=== PATIENT | female | born 1990 | race Caucasian/White ===

== ENCOUNTER 2019-06-28 15:59 | Emergency (ER) | payer MEDICAID ==
[~2019-06-28] VITALS: Ht 165.1 cm; Wt 60.0 kg
[2019-06-28 16:33] LABS: URINE HCG NEGATIVE (NEG)
[2019-06-28 16:39] LABS: CLARITY,URINE CLEAR (Clear); COLOR,URINE YELLOW (Yellow); GLUCOSE, URINE NEGATIVE (Neg); KETONES,URINE NEGATIVE (Neg); LEUKOCYTE ESTERASE ,URINE NEGATIVE (Neg); NITRITES, URINE NEGATIVE (Neg); OCCULT BLOOD,URINE NEGATIVE (Neg); PROTEIN,URINE NEGATIVE (Neg); UA COLLECTION TYPE CLN CATCH MIDSTREAM; UROBILINOGEN,URINE 0.2 E.U/dL (0.2-1.0)
[2019-06-28 16:45] LABS: BASOPHILS % (AUTO) 0.6 % (0-1); EOSINOPHILS # (AUTO) 0.1 X10'3 (0-0.9); EOSINOPHILS % (AUTO) 1.8 % (0-6); HEMATOCRIT 42.1 % (35.0-45.0); LYMPHOCYTES # (AUTO) 2.8 X10'3 (1.1-4.8); LYMPHOCYTES % (AUTO) 40.4 % (21-51); MEAN CORPUSCULAR HEMOGLOBIN 30.3 PG (27.0-31.0); MEAN CORPUSCULAR HGB CONC 33.2 g/dL (33.0-36.5); MEAN CORPUSCULAR VOLUME 91.4 FL (78-98); MEAN PLATELET VOLUME 10.3 FL (7.4-10.4); MONOCYTES # (AUTO) 0.5 X10'3 (0-0.9); MONOCYTES % (AUTO) 6.6 % (2-12); NEUTROPHILS # (AUTO) 3.5 X10'3 (1.8-7.7); NEUTROPHILS % (AUTO) 50.6 % (42-75); PLATELET COUNT 221 X10'3 (140-440); RED CELL DISTRIBUTION WIDTH 12.6 % (11.5-14.5); WHITE BLOOD COUNT 6.8 X10'3 (4.5-11.0)
[2019-06-28 16:58] LABS: ALANINE AMINOTRANSFERASE 19 U/L (12-78); ALBUMIN 4.4 G/DL (3.4-5.0); ALBUMIN/GLOBULIN RATIO 1.2 (1.1-1.5); ALKALINE PHOSPHATASE 64 IU/L (46-116); ANION GAP 9 (8-16); ASPARTATE AMINO TRANSFERASE 15 U/L (10-37); BILIRUBIN,TOTAL 0.2 MG/DL (0.1-1.0); BLOOD UREA NITROGEN 10 MG/DL (7-18); BUN/CREATININE RATIO 12.7 (6.6-38.0); CALCIUM 9.1 MG/DL (8.5-10.1); CHLORIDE 105 MMOL/L (99-107); CREATININE 0.79 MG/DL (0.40-0.90); GLUCOSE 95 MG/DL (70-104); SODIUM 141 MMOL/L (135-145); TOTAL CARBON DIOXIDE 27.1 MMOL/L (24-32); TOTAL PROTEIN 8.2 G/DL (6.4-8.2); eGFR 87 ML/MIN
[2019-06-28] MEDS ORDERED: ibuprofen tablet 400 MG TABLET PO ONE (18:00)
[2019-06-28 18:30] VITALS: BP 121/73
== END 2019-06-28 18:36 | disposition home or self-care (01) ==
LOC: ER 16:00
DX: N93.8 Other specified abnormal uterine and vaginal bleeding (principal); R10.31 Right lower quadrant pain
CPT/HCPCS: 36415; 80053; 81003; 81025; 85025; 87210; 99283

== ENCOUNTER 2019-06-29 18:15 | Emergency (ER) | payer MEDICAID ==
[~2019-06-29] VITALS: Ht 165.1 cm; Wt 52.6 kg
[2019-06-29] MEDS ORDERED: ibuprofen tablet 400 MG TABLET PO ONE (18:45)
[2019-06-29] MEDS ORDERED: ondansetron 4mg rapidly disintigrating tab PO ONE (18:45)
[2019-06-29 21:02] VITALS: BP 114/64
== END 2019-06-29 21:37 | disposition home or self-care (01) ==
LOC: ER 18:15
DX: N83.201 Unspecified ovarian cyst, right side (principal); R10.31 Right lower quadrant pain; N93.8 Other specified abnormal uterine and vaginal bleeding
CPT/HCPCS: 76830; 99284

== ENCOUNTER 2020-08-29 13:17 | Emergency (ER) | payer MEDICAID ==
[~2020-08-29] VITALS: Ht 165.1 cm; Wt 62.5 kg
--- NOTE | 2020-08-29 15:07 | NUR ---
PATIENT WENT TO URGENT CARE THE DAY AFTER LIFTING YARD WASTE UP TO A PLATFORM 3 WEEKS, AND THEY PRESCRIBED IBUPROFEN WHICH SHE TOOK REGULARLY UNTIL 2 DAYS AGO. AT TIME OF LIFTING, PATIENT HAD TO LAY ON THE GROUND AFTER SHE FELT HER BACK SEIZE UP. PATIENT WENT TO CRYOTHERAPY WELL FOR 1 WEEK OF INTENSIVE SEESIONS. EPSOLM SALT BATHS WELL. PATIENT IS CONERNED ABOUT HER BACK NOT BACK TO NORMAL AND WANTS TO RETURN TO WORK. PATIENT WOULD LIKE X RAYS OF HER BACK. PATIENT HAS APPT WITH PMD AT [facility] ON August.
--- NOTE | 2020-08-29 15:13 | NUR ---
PATIENT DENIES NUMBNESS TINGLING IN FINGERS ARMS OR ANYWHERE. SPINE APPEARS MIDLINE FOCAL TENDERNESS WITH PALPATION OF MID THORACIC SPINE AND RIGHT MID THORACIC PAIN WHERE RIB CAGE TO SPINE TENDER AND PAINFUL WITH BICEP PULLAGAINST MY ARMS. PAIN INCREASES WITH DEEP BREATHE
--- NOTE | 2020-08-29 15:22 | NUR ---
DR BLACKBURN IN ROOM OF NOTE, PATIENT "REINJURED HER BACK YESTERDAY VACUUMING" TO XRAY
[2020-08-29] MEDS ORDERED: ibuprofen tablet 400 MG TABLET PO ONE (15:25)
--- NOTE | 2020-08-29 16:06 | NUR ---
DR BLACKBURN AWARE PATIENT'S XRAYS AND MEDICATION FINISHED
--- NOTE | 2020-08-29 16:07 | NUR ---
PATIENT AMBULATED WNL WHEN SHE WENT TO XRAY EARLIER
--- NOTE | 2020-08-29 16:08 | NUR ---
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
[2020-08-29] MEDS ORDERED: NAPR-56 PO (16:14)
[2020-08-29] MEDS ORDERED: CYCL-1 PO (16:14)
[2020-08-29] MEDS ORDERED: cyclobenzaprine 10mg tablet PO ONE (16:15)
[2020-08-29] MEDS ORDERED: triamcinolone acetonide 40mg/ml inj IM ONE (16:15)
--- NOTE | 2020-08-29 16:23 | NUR ---
JULIETTE REFUSED FLEXERIL SHE IS DRIVING, JOE PROVIDED PRESCRIPTION FOR FLEXERIL AND NAPROXEN. PATIENT VERBALIZED HOW AND WHEN AND WHY TO TAKE MEDICATIONS. PATIENT VERBALIZED THAT SHE WILL NOT DRINK ETOH OR DRIVE AFTER TAKING FLEXERIL/
[2020-08-29 16:34] VITALS: BP 116/61
== END 2020-08-29 16:41 | disposition home or self-care (01) ==
LOC: ER 13:17
DX: M62.838 Other muscle spasm (principal); M54.6 Pain in thoracic spine; Z79.899 Other long term (current) drug therapy
CPT/HCPCS: 71046; 72070; 96372; 99284; J3301

== ENCOUNTER 2020-09-03 11:39 | Emergency (ER) | payer MEDICAID ==
[~2020-09-03] VITALS: Ht 162.6 cm; Wt 57.2 kg
[~2020-09-03 11:39] MED LIST: CYCL-1 PO; NAPR-56 PO
[2020-09-03 12:12] LABS: BASOPHILS % (AUTO) 0.7 % (0-1); EOSINOPHILS # (AUTO) 0.1 X10'3 (0-0.9); EOSINOPHILS % (AUTO) 1.1 % (0-6); HEMOGLOBIN 13.7 g/dl (12.0-16.0); LYMPHOCYTES # (AUTO) 2.5 X10'3 (1.1-4.8); LYMPHOCYTES % (AUTO) 35.9 % (21-51); MEAN CORPUSCULAR HGB CONC 32.6 g/dL (33.0-36.5); MEAN CORPUSCULAR VOLUME 92.2 FL (78-98); MEAN PLATELET VOLUME 9.4 FL (7.4-10.4); MONOCYTES # (AUTO) 0.4 X10'3 (0-0.9); MONOCYTES % (AUTO) 6.5 % (2-12); NEUTROPHILS # (AUTO) 3.9 X10'3 (1.8-7.7); NEUTROPHILS % (AUTO) 55.8 % (42-75); PLATELET COUNT 259 X10'3 (140-440); RED BLOOD COUNT 4.56 X10'6 (4.20-5.60); RED CELL DISTRIBUTION WIDTH 12.5 % (11.5-14.5); WHITE BLOOD COUNT 6.9 X10'3 (4.5-11.0)
[2020-09-03] MEDS ORDERED: ondansetron 4mg rapidly disintigrating tab PO ONE ×2 (12:20→13:30)
[2020-09-03] MEDS ORDERED: HYDROcodone/acetaminophen 5mg/325mg tablet PO ONE (12:20)
[2020-09-03 12:22] LABS: ALANINE AMINOTRANSFERASE 21 U/L (12-78); ALBUMIN 4.3 G/DL (3.4-5.0); ALBUMIN/GLOBULIN RATIO 1.2 (1.1-1.5); ALKALINE PHOSPHATASE 59 IU/L (46-116); ANION GAP 4 (8-16); ASPARTATE AMINO TRANSFERASE 12 U/L (10-37); BILIRUBIN,TOTAL 0.6 MG/DL (0.1-1.0); BLOOD UREA NITROGEN 11 MG/DL (7-18); BUN/CREATININE RATIO 14.3 (6.6-38.0); CHLORIDE 105 MMOL/L (99-107); CREATININE 0.77 MG/DL (0.40-0.90); GLUCOSE 110 MG/DL (70-104); POTASSIUM 3.7 MMOL/L (3.5-5.1); SODIUM 140 MMOL/L (135-145); TOTAL CARBON DIOXIDE 30.7 MMOL/L (24-32); TOTAL PROTEIN 7.8 G/DL (6.4-8.2); eGFR 89 ML/MIN
--- NOTE | 2020-09-03 12:35 | NUR ---
PT BROUGHT BACK FROM ROOM 17. US AT BEDSIDE FOR TESTING.
--- NOTE | 2020-09-03 13:27 | NUR ---
Spoke with Wes HIGUERA regarding patient requesting something to eat due to nausea. KALEN Harvey gave verbal order to another Zofran ODT 4 mg once now.
[2020-09-03 13:57] LABS: C-REACTIVE PROTEIN < 0.05 MG/DL (0.0-0.5)
[2020-09-03 14:02] LABS: URINE HCG NEGATIVE (NEG)
[2020-09-03 14:18] LABS: CLARITY,URINE CLEAR (Clear); COLOR,URINE YELLOW (Yellow); GLUCOSE, URINE NEGATIVE (Neg); KETONES,URINE NEGATIVE (Neg); LEUKOCYTE ESTERASE ,URINE NEGATIVE (Neg); NITRITES, URINE NEGATIVE (Neg); OCCULT BLOOD,URINE NEGATIVE (Neg); PROTEIN,URINE NEGATIVE (Neg); UROBILINOGEN,URINE 0.2 E.U/dL (0.2-1.0)
[2020-09-03 14:20] LABS: UA COLLECTION TYPE NON-SPECIFIED
[2020-09-03] MEDS ORDERED: HYDR-3965 PO ×2 (14:25→14:41)
[2020-09-03 14:27] VITALS: BP 121/71
== END 2020-09-03 15:19 | disposition home or self-care (01) ==
LOC: ER 11:39
DX: N83.201 Unspecified ovarian cyst, right side (principal); N83.202 Unspecified ovarian cyst, left side; R10.31 Right lower quadrant pain; Z79.899 Other long term (current) drug therapy
CPT/HCPCS: 36415; 76700; 76856; 80053; 81003; 81025; 85025; 86140; 93976; 99285